=== PATIENT | male | born 1965 | race Caucasian/White ===

== ENCOUNTER → 2022-06-13 | Outpatient (CLI) | payer OTHER | LOC: M WUC 15:13 | PROVIDERS: ATTEND Nurse Practitioner Family | DX: R76.11 Nonspecific reaction to tuberculin skin test without active tuberculosis (principal) ==

== ENCOUNTER → 2022-10-22 | Outpatient (REF) | payer OTHER | LOC: M SFHCWOUN 11:36 | PROVIDERS: ATTEND Surgery | DX: L97.523 Non-pressure chronic ulcer of other part of left foot with necrosis of muscle (principal) ==

== ENCOUNTER → 2022-11-11 | Outpatient (CLI) | payer OTHER ==
[2022-11-11 09:46] LABS: BLOOD UREA NITROGEN 25 MG/DL (9-23); CREATININE FOR GFR 1.13 MG/DL (0.70-1.30); GLOMERULAR FILTRATION RATE > 60.0 (>56)
== END ==
LOC: M LAB 08:41
PROVIDERS: ATTEND Surgery Vascular Surgery
DX: Z01.818 Encounter for other preprocedural examination (principal); I70.245 Atherosclerosis of native arteries of left leg with ulceration of other part of foot

== ENCOUNTER → 2022-11-13 | Outpatient (CLI) | payer OTHER ==
[~2022-11-13] MED LIST: PROHANCE 279.3MG/ML 15ML VIAL As Ordered ONE; PROHANCE 279.3MG/ML 5ML VIAL As Ordered ONE
== END ==
LOC: M RAD 14:30
PROVIDERS: ATTEND Surgery Vascular Surgery
DX: I70.245 Atherosclerosis of native arteries of left leg with ulceration of other part of foot (principal); M86.272 Subacute osteomyelitis, left ankle and foot
CPT/HCPCS: 73720; 93926; A9576

== ENCOUNTER 2022-12-31 10:46 | Day surgery (SDC) | payer OTHER ==
[~2022-12-31] VITALS: Ht 182.9 cm; Wt 95.6 kg
[~2022-12-31 10:46] MED LIST changes: +ATOR40TA75 PO; +BUPR75TA5 PO; +LANTINJ4 SC; -PROHANCE 279.3MG/ML 15ML VIAL As Ordered ONE; -PROHANCE 279.3MG/ML 5ML VIAL As Ordered ONE; +VITA100093 PO
[2022-12-31] MEDS ORDERED: INSULIN LISPRO (NovoLOG) PER UNIT SC SCH (12:00)
[2022-12-31] MEDS ORDERED: LIDOCAINE 2% 100MG/5ML SDV (FOR ANES.) As Ordered ONE (12:52)
[2022-12-31] MEDS ORDERED: propofoL 200 MG/20 ML VIAL As Ordered ONE (12:52)
[2022-12-31 13:30] VITALS: BP 140/86
== END 2022-12-31 13:44 | disposition home or self-care (01) ==
LOC: M OPP 10:46
PROVIDERS: ATTEND Surgery
DX: Z12.11 Encounter for screening for malignant neoplasm of colon (principal); K64.0 First degree hemorrhoids
CPT/HCPCS: 45378; J1815